=== PATIENT | female | born 1990 | race Caucasian/White ===

== ENCOUNTER 2019-06-04 14:27 | Observation (INO) ==
[2019-06-04 15:19] LABS: Bilirubin,Urine Negative (Negative); Blood,Urine Moderate (Negative); Clarity,Urine Clear (Clear); Color,Urine Yellow (Yellow); Glucose,Urine (UA) Normal (Normal); Ketones,Urine Negative (Negative); Leukocyte Esterase,Urine Negative (Negative); Nitrite,Urine Negative (Negative); Protein,Urine Negative (Neg-Trace); Specific Gravity,Urine 1.015 (1.010-1.025); Urobilinogen,Urine Normal (Normal)
[2019-06-04 15:24] LABS: Bacteria,Urine None Seen per hpf (None-Few); Hyaline Casts,Urine None Seen per lpf (None-Few); Squamous Epithelial Cell,Urine Many per lpf (None-Few); WBC,Urine 0-3 per hpf (0-3)
[2019-06-04 15:27] LABS: Amphetamine Screen,Urine Negative ng/mL (Cutoff=1000); Barbiturate Screen,Urine Negative ng/mL (Cutoff=200); Benzodiazepines Screen,Urine Negative ng/mL (Cutoff=200); Cannabinoid Screen,Urine Negative ng/mL (Cutoff = 50); Cocaine Screen,Urine Negative ng/mL (Cutoff= 300); Opiate Screen,Urine Negative ng/mL (Cutoff=300); Phencyclidine Screen,Urine Negative ng/mL (Cutoff=25)
== END 2019-06-04 17:32 | disposition home or self-care (01) ==
LOC: 1NENULAB
PROVIDERS: ADMIT Registered Nurse; ATTEND Registered Nurse

== ENCOUNTER → 2019-06-20 22:06 | Observation (INO) ==
[2019-06-20 21:28] LABS: Bilirubin,Urine Negative (Negative); Blood,Urine Negative (Negative); Clarity,Urine Cloudy (Clear); Color,Urine Yellow (Yellow); Glucose,Urine (UA) Normal (Normal); Ketones,Urine Negative (Negative); Leukocyte Esterase,Urine Negative (Negative); Nitrite,Urine Negative (Negative); Protein,Urine Negative (Neg-Trace); Specific Gravity,Urine 1.014 (1.010-1.025); Urobilinogen,Urine Normal (Normal)
[2019-06-20 21:29] LABS: Bacteria,Urine None Seen per hpf (None-Few); Hyaline Casts,Urine None Seen per lpf (None-Few); RBC,Urine 0-3 per hpf (0-3); Squamous Epithelial Cell,Urine Many per lpf (None-Few); WBC,Urine 0-3 per hpf (0-3)
[2019-06-20 21:35] LABS: Amphetamine Screen,Urine Negative ng/mL (Cutoff=1000); Barbiturate Screen,Urine Negative ng/mL (Cutoff=200); Benzodiazepines Screen,Urine Negative ng/mL (Cutoff=200); Cannabinoid Screen,Urine Negative ng/mL (Cutoff = 50); Cocaine Screen,Urine Negative ng/mL (Cutoff= 300); Opiate Screen,Urine Negative ng/mL (Cutoff=300); Phencyclidine Screen,Urine Negative ng/mL (Cutoff=25)
== END | disposition home or self-care (01) ==
LOC: 1NENULAB
PROVIDERS: ADMIT Obstetrics & Gynecology; ATTEND Obstetrics & Gynecology

== ENCOUNTER 2019-06-30 10:00 | Inpatient (IN) ==
[2019-06-30] MEDS ORDERED: *HR* Nalbuphine 10 MG/ML AMPUL IVP PRN (12:46)
[2019-06-30] MEDS ORDERED: Famotidine 20 MG/2 ML VIAL IVP PRN (12:46)
[2019-06-30] MEDS ORDERED: Metoclopramide 10 MG/2 ML VIAL IVP PRN (12:46)
[2019-06-30] MEDS ORDERED: miSOPROStol 25 MCG TABLET VG PRN (12:46)
[2019-06-30] MEDS ORDERED: Naloxone 0.4 MG/ML INJ IVP PRN ×2 (12:46→15:36)
[2019-06-30] MEDS ORDERED: Ondansetron 4 MG/2 ML VIAL IVP PRN ×2 (12:46→15:36)
[2019-06-30 13:37] LABS: Basophils % 0.2 %; Eosinophils % 0.2 %; Hematocrit 33.7 % (35.3-44.9); Hemoglobin 11.5 g/dL (11.5-15.4); Immature Granulocytes % 0.4 % (0-4); Lymphocytes # 1.9 K/mcL (0.6-4.6); Lymphocytes % 19.1 %; Mean Corpuscular HGB Conc 34.1 g/dL (31.6-35.5); Mean Corpuscular Hemoglobin 31.1 pg (28.0-33.3); Mean Corpuscular Volume 91.1 fL (83.0-100.0); Mean Platelet Volume 11.7 fL (9.4-12.4); Monocytes # 0.7 K/mcL (0.0-1.3); Monocytes % 6.8 %; Neutrophils # 7.2 K/mcL (1.6-8.9); Platelet Count 149 K/mcL (140-400); Red Cell Distribution Width 13.2 % (11.5-14.5); Segmented Neutrophils % 73.3 %; White Blood Count 9.8 K/mcL (4.3-11.1)
[2019-06-30 14:03] LABS: Amphetamine Screen,Urine Negative ng/mL (Cutoff=1000); Barbiturate Screen,Urine Negative ng/mL (Cutoff=200); Benzodiazepines Screen,Urine Negative ng/mL (Cutoff=200); Cannabinoid Screen,Urine Negative ng/mL (Cutoff = 50); Cocaine Screen,Urine Negative ng/mL (Cutoff= 300); Opiate Screen,Urine Negative ng/mL (Cutoff=300); Phencyclidine Screen,Urine Negative ng/mL (Cutoff=25)
[2019-06-30] MEDS ORDERED: EPHEDrine 50 MG/ML VIAL IVP PRN (15:36)
[2019-06-30] MEDS ORDERED: *HR* FentaNYL (PF) 100 MCG/2 ML VIAL EP ONE (15:36)
[2019-06-30] MEDS ORDERED: Ropivacaine/PF 0.2% 20 ML VIAL EP ONE (15:36)
[2019-06-30] MEDS: Ringers Solution, Lactated 1,000 ML IVC SCH ×2 (17:27→22:46)
[2019-06-30] MEDS ORDERED: *HR* FentaNYL (PF) 100 MCG/2 ML VIAL ONE (17:36)
[2019-06-30] MEDS ORDERED: Oxytocin 20 units/ LR 1000 mL 20 UNIT/1,000 ML BAG IVC SCH (20:00)
[2019-06-30] MEDS ORDERED: Ropivacaine/PF 0.2% 20 ML VIAL ONE (23:25)
[2019-07-01] MEDS: Epidural Premix (fent/bupiv) 110 ML EP SCH ×2 (00:48→06:26)
[2019-07-01] MEDS: Ringers Solution, Lactated 1,000 ML IVC SCH ×2 (04:36→09:57)
[2019-07-01] MEDS ORDERED: Lidocaine/EPI 1:200k 2% PF 20 ML VIAL ONE (11:09)
[2019-07-01] MEDS ORDERED: Azithromycin 500 MG in 0.9 % Sodium Chloride 250 ML IVPB ONE (11:12)
[2019-07-01] MEDS ORDERED: Ondansetron 4 MG/2 ML VIAL ONE (11:47)
[2019-07-01] MEDS ORDERED: *HR* FentaNYL (PF) 100 MCG/2 ML VIAL ONE (11:48)
[2019-07-01] MEDS ORDERED: Ringers Solution, Lactated 1,000 ML ONE (11:53)
[2019-07-01] MEDS ORDERED: Morphine Sulfate 2 MG/ML SYRINGE IVP PRN (11:55)
[2019-07-01] MEDS ORDERED: Ibuprofen 400 MG TABLET PO PRN (11:55)
[2019-07-01] MEDS ORDERED: Ondansetron 4 MG/2 ML VIAL IVP PRN ×2 (11:55→15:42)
[2019-07-01] MEDS ORDERED: *HR* HYDROmorphone (PF) 1 MG/ML SYRINGE IVP PRN (11:55)
[2019-07-01] MEDS ORDERED: *HR* OxyCODONE/APAP 5/325 TABLET PO PRN (11:55)
[2019-07-01] MEDS ORDERED: Acetaminophen IV 1,000 MG/100 ML INFUS..BTL IVPB STA (12:03)
[2019-07-01] MEDS ORDERED: *HR* Morphine Sulfate/PF 10 MG/10 ML AMPUL ONE (12:04)
[2019-07-01] MEDS ORDERED: Dexamethasone 4 MG/ML VIAL ONE (12:14)
[2019-07-01] MEDS ORDERED: Ketorolac 30 MG/ML VIAL ONE (12:14)
[2019-07-01] MEDS ORDERED: Rho Immune Globulin 1,500 UNIT SYRINGE IM ONE (15:42)
[2019-07-01] MEDS ORDERED: Metoclopramide 10 MG/2 ML VIAL IVP PRN (15:42)
[2019-07-01] MEDS ORDERED: Sennosides 8.6 MG TABLET PO PRN (15:42)
[2019-07-01] MEDS ORDERED: *HR* OxyCODONE/APAP 10/325 TABLET PO PRN (15:42)
[2019-07-01] MEDS: Oxytocin 20 units/ LR 1000 mL 20 UNIT/1,000 ML BAG IVC SCH (18:25)
[2019-07-01] MEDS: Ibuprofen 600 MG TABLET PO PRN (19:49)
[2019-07-01] MEDS: metroNIDAZOLE 500 MG TABLET PO SCH (19:50)
[2019-07-01] MEDS: cephALEXin 500 MG CAPSULE PO SCH (19:50)
[2019-07-02] MEDS: *HR* OxyCODONE/APAP 5/325 TABLET PO PRN ×2 (00:44→10:07)
[2019-07-02 05:20] LABS: Basophils % 0.2 %; Hematocrit 23.2 % (35.3-44.9); Immature Granulocytes % 0.6 % (0-4); Lymphocytes # 1.7 K/mcL (0.6-4.6); Lymphocytes % 8.8 %; Mean Corpuscular HGB Conc 32.8 g/dL (31.6-35.5); Mean Corpuscular Hemoglobin 31.5 pg (28.0-33.3); Mean Corpuscular Volume 96.3 fL (83.0-100.0); Mean Platelet Volume 11.4 fL (9.4-12.4); Monocytes # 1.1 K/mcL (0.0-1.3); Monocytes % 5.7 %; Neutrophils # 16.6 K/mcL (1.6-8.9); Platelet Count 109 K/mcL (140-400); Red Blood Count 2.41 M/mcL (3.82-4.97); Red Cell Distribution Width 13.6 % (11.5-14.5); Segmented Neutrophils % 84.7 %
[2019-07-02 05:21] LABS: Hemoglobin 7.6 g/dL (11.5-15.4); White Blood Count 19.6 K/mcL (4.3-11.1)
[2019-07-02] MEDS: Ibuprofen 600 MG TABLET PO PRN ×2 (06:28→18:28)
[2019-07-02] MEDS: cephALEXin 500 MG CAPSULE PO SCH ×2 (08:21→20:18)
[2019-07-02] MEDS: metroNIDAZOLE 500 MG TABLET PO SCH ×2 (08:22→20:18)
[2019-07-02] MEDS ORDERED: Prenatal Vit/FA 1 EACH TABLET PO SCH (09:00)
[2019-07-02] MEDS: Ringers Solution, Lactated 1,000 ML IVC SCH ×2 (14:09→15:09)
[2019-07-02] MEDS: Oxytocin 20 units/ LR 1000 mL 20 UNIT/1,000 ML BAG IVC SCH (14:10)
[2019-07-02] MEDS: Simethicone 80 MG TAB.CHEW PO PRN ×2 (15:02→23:46)
[2019-07-02] MEDS ORDERED: Lanolin 7 G OINT...G. TP PRN (20:50)
[2019-07-03] MEDS: Acetaminophen 325 MG TABLET PO PRN ×2 (00:02→08:14)
[2019-07-03] MEDS: Ibuprofen 600 MG TABLET PO PRN ×2 (03:31→12:22)
[2019-07-03] MEDS: cephALEXin 500 MG CAPSULE PO SCH (08:14)
[2019-07-03] MEDS: metroNIDAZOLE 500 MG TABLET PO SCH (08:14)
[2019-07-03] MEDS ORDERED: FLU Vac QV 19-20 (6Month+)/PF 0.5 ML SYRINGE IM ONE (08:27)
[2019-07-03 08:30] VITALS: BP 121/82
== END 2019-07-03 12:22 | disposition home or self-care (01) | DRG 787 ==
LOC: 1NENULAB 10:04 → 1NENUOBS 07-01 15:04
PROVIDERS: ADMIT Obstetrics & Gynecology; ATTEND Obstetrics & Gynecology